=== PATIENT | female | born 1935 | race Caucasian/White ===

== ENCOUNTER 2018-06-24 03:19 | Inpatient (IN) ==
[2018-06-24] MEDS ORDERED: *HR* FentaNYL (PF) 100 MCG/2 ML VIAL IVP ONE (04:31)
--- NOTE | 2018-06-24 04:45 | Emergency Department Note ---
Disposition Clinical Impression: Hypoxia Community acquired pneumonia Qualifiers: Laterality: left Lung location: lower lobe of lung Qualified Code(s): J18.1 - Lobar pneumonia, unspecified organism Abdominal pain Qualifiers: Abdominal location: unspecified location Qualified Code(s): R10.9 - Unspecified abdominal pain Disposition: Admitted As Inpatient Condition: Good Referrals: Beverly Almanza MD [Primary Care Provider] - Forms: ED Satisfaction Letter, Work/School Release Time of Disposition: 06:13 Abdominal Pain HPI - General Chief Complaint: ED Abdominal Pain Stated Complaint: Chest Pain Abd Pain Time Seen by Provider: 06/24/18 03:23 Source: patient, family (Daughter), EMS Mode of arrival: EMS Limitations: no limitations Nursing Notes Reviewed: Yes Vital Signs Reviewed: Yes - History of Present Illness HPI Narrative: 82-year-old female history of hypertension, diabetes, hyperlipidemia presents to the emergency department with chest pain and abdominal pain. She reports around 1999 while watching TV she experienced sharp pain in the left upper quadrant that radiates across the abdomen under the ribs and up the chest. She reports a similar history in the past but not as severe. She does not recall the etiology of it at this time. She says she sees her primary care provider for the similar symptoms states this feels different. Denies any nausea or vomiting. Reports some shortness of breath. She is currently requiring 2 liter oxygen to keep her saturation above 95%. She does not wear home oxygen. Denies any diarrhea. She reports constipation but she had a bowel movement earlier today. History of ventral hernia and hiatal hernia repair performed by Dr. Schmid. No history of cardiac ischemic disease. Currently is not expressing any chest pain. Mostly her pain is located in the left upper quadrant. She does believe it is due to gastric ulcers. She denies any hematemesis, black tarry stool or bloody stool. She does not take any blood thinners. States she is currently being treated for bladder infection with Macrobid. She does have known aortic aneurysm and recently was evaluated 3 months ago states no change. Pt Subjective Complaint: abdominal pain Onset (ago): hour(s) Consistency: intermittent Location: LUQ Pain Scale: 7 Radiation: epigastric, chest - Related Data Allergies Allergy/AdvReac Type Severity Reaction Status Date / Time codeine AdvReac Nausea Verified 06/24/18 04:36 Penicillins AdvReac Rash Verified 06/24/18 04:36 Sulfa (Sulfonamide AdvReac Rash Verified 06/24/18 04:36 Antibiotics) All systems ED: reviewed and negative except as stated. Review of Systems: As Per HPI Constitutional: Denies: fever, chills ENT ED: Denies: congestion Cardiovascular: Reports: chest pain Respiratory: Reports: dyspnea. Denies: cough, hemoptysis Gastrointestinal: Reports: abdominal pain, constipation. Denies: nausea, vomiting, diarrhea, hematemesis, melena, hematochezia Genitourinary: Reports: dysuria Musculoskeletal: Denies: back pain, neck pain Integumentary: Denies: rash, abrasion Neurological: Denies: headache Endocrine: Denies: fatigue Abdominal Pain PMH - Past Medical History Medical history: Reports: aortic aneurysm, hypertension, renal disease, thyroid disease, other Female Surgical History: Reports: appendectomy, herniorrhaphy, hysterectomy, other Psychiatric history: Reports: no psych history - Social History Smoking status: Never smoker Alcohol use: Reports: none Drug use: Reports: none Physical Exam - General Limitations: no limitations General appearance: alert, in no apparent distress - Head Head exam: atraumatic, normocephalic, normal inspection - Eye Eye exam: Present: normal appearance, PERRL, EOMI - ENT ENT exam: normal exam, normal oropharynx, mucous membranes moist - Neck Neck exam: Present: normal inspection, full ROM, trachea midline - Chest Chest inspection: Present: normal inspection, symmetric chest wall rise - Respiratory Respiratory exam: Present: normal lung sounds bilaterally. Absent: respiratory distress, wheezes - Cardiovascular Cardiovascular exam: Present: regular rate, normal rhythm, normal heart sounds. Absent: systolic murmur, diastolic murmur - Expanded Cardiovascular Exam Peripheral pulses: 2+: radial (R), radial (L) - Abdominal Exam Abdominal exam: Present: soft, normal bowel sounds. Absent: Non-Tender, distention, guarding, rebound, rigidity, mass, hernia Abdominal tenderness: Present: LUQ, diffuse - Extremities Exam Extremities exam: Present: normal inspection, full ROM, normal capillary refill. Absent: tenderness, pedal edema - Neurological Exam Neurological exam: Present: alert, oriented X3 - Psychiatric Psychiatric exam: Present: normal affect, normal mood - Skin Skin exam: Present: warm, dry, intact, normal color. Absent: rash, cyanosis, diaphoresis Course Course Narrative: Patient presents with a day complaints of left upper quadrant pain with radiation along lower ribs and into the chest. She denies any shortness of breath however it was noted that she was hypoxic without oxygen. She was placed on 4 L nasal cannula by EMS and bumped down to 2 L maintaining 9496%. She does not wear oxygen at home. She denies any recent illness. Her pain is mostly in the left upper abdomen. At this time chest pain workup initiated including the CT scan. - Reevaluation(s) Reevaluation #1: Patient drop-down 88% on 2 occasions when we attempted to titrate her off oxygen supplementation. Her chest x-ray shows concern for possible left lower lobe pneumonia. Review for lab shows a leukocytosis of 13. Her CT scan did not reveal any acute intra-abdominal abnormality however there were opacities seen I basilar left greater than the right. Clinically she has community acquired pneumonia given her hypoxia. At this time we will plan to admit her for inpatient treatment of her community acquired pneumonia given her hypoxia and other comorbidities. Patients in agreement with this plan. Impression is community acquired pneumonia and hypoxia with abdominal pain. - Consultations Consultation #1: Spoke with on-call hospitalist bishop Sinha to admit for community acquired pneumonia and hypoxia with abdominal pain. No further orders at this time Time: 06:27 Vital Signs Temperature 98.7 F 06/24/18 03:23 Pulse Rate 70 06/24/18 03:23 Respiratory Rate 16 06/24/18 03:23 Blood Pressure 149/66 06/24/18 03:23 O2 Sat by Pulse Oximetry 96 06/24/18 03:23 Temperature 98.7 F 06/24/18 03:23 Pulse Rate 71 06/24/18 04:35 Respiratory Rate 17 06/24/18 04:35 Blood Pressure 132/118 06/24/18 04:35 O2 Sat by Pulse Oximetry 96 06/24/18 04:35 Oxygen Delivery Oxygen Delivery Nasal Cannula Abdominal Pain - MDM Narrative Medical decision making narrative: Patient was discussed with my attending physician who agrees with ED management and final disposition. They independently evaluated the patient. Please refer to their attestation to this encounter for additional information. This note was generated by [email or web address] voice recognition software and as a result grammatical or spelling errors may occur using this program. - Medical Records Medical records reviewed: Yes I reviewed the patient's medical records. - Lab Data Lab results reviewed: Yes I reviewed the patient's lab results. Result diagrams: 06/24/18 04:44 06/24/18 04:44 Lab Results 06/24/18 06/24/18 Range/Units 04:44 04:44 WBC 13.2 H (4.3-11.1) K/mcL RBC 3.86 (3.82-4.97) M/mcL Hgb 11.7 (11.5-15.4) g/dL Hct 37.2 (35.3-44.9) % MCV 96.4 (83.0-100.0) fL MCH 30.3 (28.0-33.3) pg MCHC 31.5 L (31.6-35.5) g/dL RDW 12.3 (11.5-14.5) % Plt Count 233 (140-400) K/mcL MPV 10.9 (9.4-12.4) fL Immature Gran % 0.2 (0-4) % Seg Neutrophils % 83.3 % Lymphocytes % 7.9 % Monocytes % 5.5 % Eosinophils % 2.6 % Basophils % 0.5 % Neutrophils # 11.0 H (1.6-8.9) K/mcL Lymphocytes # 1.1 (0.6-4.6) K/mcL Monocytes # 0.7 (0.0-1.3) K/mcL Eosinophils # 0.4 (0.0-0.6) K/mcL Basophils # 0.1 (0.0-0.2) K/mcL Sodium 140 (136-145) mEq/L Potassium 4.3 (3.5-5.1) mEq/L Chloride 105 (98-107) mEq/L Carbon Dioxide 26 (23-29) mEq/L BUN 17 (8-23) mg/dL Creatinine 0.82 (0.60-1.20) mg/dL Est GFR ( Amer) > 60 (> 60) Est GFR (Non-Af Amer) > 60 (> 60) BUN/Creatinine Ratio 21 (6-26) Glucose 245 H (70-105) mg/dL Calculated Osmolality 300 (280-300) Calcium 8.6 (8.6-10.3) mg/dL Troponin I < 0.03 (< 0.04) ng/mL - Radiology Data Radiology results reviewed: Yes I reviewed the patient's radiology results. Chest X-Ray 06/24/18 03:44 IMPRESSION: Left lower lung consolidation and pleural effusion presumably reflecting pneumonia. Calcific atherosclerotic disease aorta. D/ / Candido Lloyd / Candido Lloyd Interpreting Provider: Candido Lloyd Abdomen/Pelvis CT 06/24/18 03:50 IMPRESSION: No CT evidence of acute intra-abdominal process. Bilateral lower lobe airspace opacities, left greater than right, concerning for pneumonia. Trace left pleural effusion. Colonic diverticulosis. Multiple bladder diverticula. Diffuse osteopenia. D/ / Rufino Alberto / Rufino Alberto Interpreting Provider: Rufino Alberto - EKG Data EKG attestation: Yes I reviewed and interpreted this EKG. EKG results narrative: EKG performed 327 normal sinus rhythm 70 beats per minute, normal axis, right bundle branch block QRS 122, no ST elevation or depression. Compared to prior EKG performed 04/12/2015 which shows similar consistent findings of right bundle branch block. No acute ischemic changes.
[2018-06-24 04:58] LABS: Basophils # 0.1 K/mcL (0.0-0.2); Basophils % 0.5 %; Eosinophils # 0.4 K/mcL (0.0-0.6); Eosinophils % 2.6 %; Hematocrit 37.2 % (35.3-44.9); Hemoglobin 11.7 g/dL (11.5-15.4); Immature Granulocytes % 0.2 % (0-4); Lymphocytes # 1.1 K/mcL (0.6-4.6); Lymphocytes % 7.9 %; Mean Corpuscular HGB Conc 31.5 g/dL (31.6-35.5); Mean Corpuscular Hemoglobin 30.3 pg (28.0-33.3); Mean Corpuscular Volume 96.4 fL (83.0-100.0); Mean Platelet Volume 10.9 fL (9.4-12.4); Monocytes # 0.7 K/mcL (0.0-1.3); Monocytes % 5.5 %; Platelet Count 233 K/mcL (140-400); Red Blood Count 3.86 M/mcL (3.82-4.97); Red Cell Distribution Width 12.3 % (11.5-14.5); Segmented Neutrophils % 83.3 %
[2018-06-24 05:18] LABS: BUN/Creatinine Ratio 21 (6-26); Blood Urea Nitrogen 17 mg/dL (8-23); Calcium 8.6 mg/dL (8.6-10.3); Carbon Dioxide 26 mEq/L (23-29); Chloride 105 mEq/L (98-107); Glucose 245 mg/dL (70-105); Osmolality,Calculated 300 (280-300); Potassium 4.3 mEq/L (3.5-5.1); Sodium 140 mEq/L (136-145); eGFR For Non-African Americans > 60 (> 60)
[2018-06-24 05:19] LABS: Troponin I < 0.03 ng/mL (< 0.04)
[2018-06-24] MEDS ORDERED: cefTRIAXone 1,000 MG in Water for inj. (sterile) 20 ML 10 ML IVP ONE (06:04)
[2018-06-24] MEDS ORDERED: Azithromycin 500 MG in D5% in Water 250 ML IVPB ONE (06:04)
--- NOTE | 2018-06-24 06:43 | Emergency Department Note ---
Disposition Clinical Impression: Hypoxia Community acquired pneumonia Qualifiers: Laterality: left Lung location: lower lobe of lung Qualified Code(s): J18.1 - Lobar pneumonia, unspecified organism Abdominal pain Qualifiers: Abdominal location: unspecified location Qualified Code(s): R10.9 - Unspecified abdominal pain Disposition: Admitted As Inpatient Condition: Good General Adult HPI - General Chief complaint: ED Abdominal Pain Stated complaint: Chest Pain Abd Pain Time Seen by Provider: 06/24/18 03:23 Source: patient, family (Daughter), EMS Mode of arrival: EMS Limitations: no limitations Nursing Notes Reviewed: Yes Vital Signs Reviewed: Yes - History of Present Illness Pain Scale: 5 - Related Data Allergies Allergy/AdvReac Type Severity Reaction Status Date / Time codeine AdvReac Nausea Verified 06/24/18 04:36 Penicillins AdvReac Rash Verified 06/24/18 04:36 Sulfa (Sulfonamide AdvReac Rash Verified 06/24/18 04:36 Antibiotics) Constitutional: Denies: fever, chills ENT ED: Denies: congestion Cardiovascular: Reports: chest pain Respiratory: Reports: dyspnea. Denies: cough, hemoptysis Gastrointestinal: Reports: abdominal pain, constipation. Denies: nausea, vomiting, diarrhea, hematemesis, melena, hematochezia Genitourinary: Reports: dysuria Musculoskeletal: Denies: back pain, neck pain Integumentary: Denies: rash, abrasion Neurological: Denies: headache Endocrine: Denies: fatigue Past Medical History - Past Medical History Medical history: Reports: aortic aneurysm, hypertension, renal disease, thyroid disease, other Psychiatric history: Reports: no psych history - Social History Smoking Status: Never smoker Smokeless Tobacco Status: Yes Alcohol use: Reports: none Drug use: Reports: none Physical Exam - General Limitations: no limitations General appearance: alert, in no apparent distress Course Vital Signs Temperature 98.7 F 06/24/18 03:23 Pulse Rate 70 06/24/18 03:23 Respiratory Rate 16 06/24/18 03:23 Blood Pressure 149/66 06/24/18 03:23 O2 Sat by Pulse Oximetry 96 06/24/18 03:23 Temperature 98.7 F 06/24/18 03:23 Pulse Rate 70 06/24/18 06:31 Respiratory Rate 20 06/24/18 06:31 Blood Pressure 149/68 06/24/18 06:31 O2 Sat by Pulse Oximetry 95 06/24/18 06:31 Oxygen Delivery Oxygen Delivery Nasal Cannula Medical Decision Making - Medical Records Medical records reviewed: Yes I reviewed the patient's medical records. - Lab Data Lab results reviewed: Yes I reviewed the patient's lab results. Result diagrams: 06/24/18 04:44 06/24/18 04:44 Lab Results 06/24/18 06/24/18 Range/Units 04:44 04:44 WBC 13.2 H (4.3-11.1) K/mcL RBC 3.86 (3.82-4.97) M/mcL Hgb 11.7 (11.5-15.4) g/dL Hct 37.2 (35.3-44.9) % MCV 96.4 (83.0-100.0) fL MCH 30.3 (28.0-33.3) pg MCHC 31.5 L (31.6-35.5) g/dL RDW 12.3 (11.5-14.5) % Plt Count 233 (140-400) K/mcL MPV 10.9 (9.4-12.4) fL Immature Gran % 0.2 (0-4) % Seg Neutrophils % 83.3 % Lymphocytes % 7.9 % Monocytes % 5.5 % Eosinophils % 2.6 % Basophils % 0.5 % Neutrophils # 11.0 H (1.6-8.9) K/mcL Lymphocytes # 1.1 (0.6-4.6) K/mcL Monocytes # 0.7 (0.0-1.3) K/mcL Eosinophils # 0.4 (0.0-0.6) K/mcL Basophils # 0.1 (0.0-0.2) K/mcL Sodium 140 (136-145) mEq/L Potassium 4.3 (3.5-5.1) mEq/L Chloride 105 (98-107) mEq/L Carbon Dioxide 26 (23-29) mEq/L BUN 17 (8-23) mg/dL Creatinine 0.82 (0.60-1.20) mg/dL Est GFR ( Amer) > 60 (> 60) Est GFR (Non-Af Amer) > 60 (> 60) BUN/Creatinine Ratio 21 (6-26) Glucose 245 H (70-105) mg/dL Calculated Osmolality 300 (280-300) Calcium 8.6 (8.6-10.3) mg/dL Troponin I < 0.03 (< 0.04) ng/mL - Radiology Data Radiology results reviewed: Yes I reviewed the patient's radiology results. Chest X-Ray 06/24/18 03:44 IMPRESSION: Left lower lung consolidation and pleural effusion presumably reflecting pneumonia. Calcific atherosclerotic disease aorta. D/ / Candido Lloyd / Candido Lloyd Interpreting Provider: Candido Lloyd Abdomen/Pelvis CT 06/24/18 03:50 IMPRESSION: No CT evidence of acute intra-abdominal process. Bilateral lower lobe airspace opacities, left greater than right, concerning for pneumonia. Trace left pleural effusion. Colonic diverticulosis. Multiple bladder diverticula. Diffuse osteopenia. D/ / Rufino Alberto / Rufino Alberto Interpreting Provider: Rufino Alberto - EKG Data EKG #1 EKG attestation: Yes I reviewed and interpreted this EKG. EKG results narrative: EKG shows a normal sinus rhythm with ventricular rate of 70. Right bundle branch block. No ST segment elevation or depression. No arrhythmia or ectopy. No significant change from prior EKG dated 04/12/2015. Critical Care Time Critical Care Time: Yes Total Critical Care Time: 35 Attestation: Critical care performed: Time is exclusive of separately billable procedures. Time includes: direct patient care, patient reassessment, coordination of patient care, interpretation of data (laboratory data, radiology data, and respiratory data), review of patient's medical records, medical consultation and documentation of patient care. Procedures included in critical care time: Procedures excluded from critical care time: Attestation Statement - Attestation Attestation: David Richardson MD, personally evaluated this patient and discussed their management with the resident physician. I reviewed the resident's note and agree with the documented findings, medical decision making, and plan of care. 82-year-old female presents to the emergency department with a complaint of left upper quadrant abdominal pain that started one day prior to arrival. The pain seemed to spread across to the right upper abdomen and throughout the entire abdomen. She also admits to some shortness of breath. No increased cough. Some chills but no definite fever. No chest pain. On examination patient is a well-developed well-nourished well-appearing elderly female in no acute distress. She is alert and oriented 3. There is no cyanosis or diaphoresis. Breath sounds are equal bilaterally with a few bibasilar rales, worse on the left. No wheezes noted. Heart regular rate and rhythm. Abdomen is soft with normal bowel sounds. Mild to moderate diffuse tenderness on direct palpation. No guarding or rebound tenderness. Labs reviewed. Chest x-ray shows a left pleural effusion and left basilar infiltrate. CT the abdomen and pelvis showed no acute intra-abdominal abnormality. It did show bibasilar airspace disease worse on the left. IV antibiotics initiated. The hospitalist, Dr. Casillas, was consulted and accepted admission of the patient.
[2018-06-24] MEDS ORDERED: Acetaminophen 325 MG TABLET PO PRN (08:10)
[2018-06-24] MEDS ORDERED: Naloxone 0.4 MG/ML INJ IVP PRN (08:10)
[2018-06-24] MEDS ORDERED: D5% in Water 1,000 ML IVC PRN (08:14)
[2018-06-24] MEDS ORDERED: *HR* Dextrose 50 % in Water (Syg) 50 ML SYRINGE IVP PRN (08:14)
[2018-06-24] MEDS ORDERED: Dextrose Gel 15 GM/37.5 ML TUBE PO PRN ×2 (08:14)
--- NOTE | 2018-06-24 08:25 | Internal Med History&Physical ---
Date of Encounter: 06/24/18 Time of Encounter: 07:30 Internal Medicine - H&P: HPI Chief complaint: Abdominal pain Admitted From: Home Plans for Post Hospital Care: Home History of present illness: Ms. Montelongo is a 82 year old female present to ER for lower chest and upper abdominal pain since yesterday evening. Past medical history is significant for diabetes, hypothyroidism, abdominal aortic aneurysm, history of surgery for hiatal hernia. Patient said she started to have lower chest pain and upper abdominal pain since yesterday evening around 8 PM. Pain is constant and progressively getting worse. With nausea but no vomiting. Pain is not related to eating. Patient denies cough. Patient has mild shortness of breath. Patient denies fever, diarrhea. Patient has bowel movement yesterday morning, which is normal. Patient can pass gas. Patient was recently diagnosed as UTI and was treated with MicroBid by her urology. Patient still have mild dysuria. In the emergency room, EKG unremarkable, first troponin negative. Patient has mild leukocytosis. Chest x-ray shows bilateral lower lobe pneumonia, left> right. Abdomen CT shows no significant acute intra-abdominal changes. Patient was admitted for further management. I have discussed with patient regarding CODE STATUS. Patient is AAO 3, clearly told me she does not want CPR but accept intubation, DNR CCA placed, witnessed up by patient's daughter and granddaughter. Past Med Surg Social Fam HX - Past Medical History Medical history: aortic aneurysm, hypertension, renal disease, thyroid disease, other Additional medical history: throid Psychiatric history: no psych history - Past Surgical History Additional surgical history: tumor spine, abd surgery - Social History Smoking Status: Never smoker Smokeless Tobacco Status: Yes Alcohol use: none Drug use: none - Family History Mother History Unknown: Yes Internal Medicine - H&P: Meds Allergy/AdvReac Type Severity Reaction Status Date / Time codeine AdvReac Nausea Verified 06/24/18 04:36 Penicillins AdvReac Rash Verified 06/24/18 04:36 Sulfa (Sulfonamide AdvReac Rash Verified 06/24/18 04:36 Antibiotics) All Systems PM: A 10-system review of systems was performed and is negative for pertinent findings except as documented above in the HPI. - Constitutional Vitals: Temp Pulse Resp BP Pulse Ox 98.7 F 70 20 149/68 95 06/24/18 03:23 06/24/18 06:31 06/24/18 06:31 06/24/18 06:31 06/24/18 06:31 Exam: Pt is AAO x 3, in NAD HEENT: NC/AT, PERRL Neck: Supple, no JVD, no LAD Lungs: CTA b/l, patient has chest wall tenderness on anterior chest wall Heart: S1S2, RRR Abd: Soft, mild tenderness in 4Q, BS present Ext: ROM wnl, no pedal edema Neuro: No focal deficit Internal Med - H&P Results - Labs CBC & Chem 7: 06/24/18 04:44 06/24/18 04:44 Labs: Short CBC 06/24/18 Range/Units 04:44 WBC 13.2 H (4.3-11.1) K/mcL Hgb 11.7 (11.5-15.4) g/dL Hct 37.2 (35.3-44.9) % Plt Count 233 (140-400) K/mcL Neutrophils # 11.0 H (1.6-8.9) K/mcL BMP 06/24/18 04:44 Sodium 140 Potassium 4.3 Chloride 105 Carbon Dioxide 26 BUN 17 Creatinine 0.82 Glucose 245 H Calcium 8.6 Cardiac Enzymes 06/24/18 Range/Units 04:44 Troponin I < 0.03 (< 0.04) ng/mL - Impressions ITS Impressions Chest X-Ray 06/24/18 03:44 IMPRESSION: Left lower lung consolidation and pleural effusion presumably reflecting pneumonia. Calcific atherosclerotic disease aorta. D/ / Candido Lloyd / Candido Lloyd Interpreting Provider: Candido Lloyd Abdomen/Pelvis CT 06/24/18 03:50 IMPRESSION: No CT evidence of acute intra-abdominal process. Bilateral lower lobe airspace opacities, left greater than right, concerning for pneumonia. Trace left pleural effusion. Colonic diverticulosis. Multiple bladder diverticula. Diffuse osteopenia. D/ / Rufino Alberto / Rufino Alberto Interpreting Provider: Rufino Alberto - Assessment and Plan (1) Diabetes Current Visit: Yes Status: Acute Assessment and plan: Patient takes metformin at home. Place patient on insulin sliding scale coverage. Qualifiers: Diabetes mellitus type: type 2 Diabetes mellitus termite helper insulin use: without termite helper use Diabetes mellitus complication status: without complication Qualified Code(s): E11.9 - Type 2 diabetes mellitus without complications (2) Hypothyroidism Current Visit: Yes Status: Acute Assessment and plan: Continue home medications Qualifiers: Hypothyroidism type: acquired Qualified Code(s): E03.9 - Hypothyroidism, unspecified (3) Abdominal aortic aneurysm Current Visit: Yes Status: Acute Assessment and plan: Stable. Continue outpatient follow-up Qualifiers: Presence of rupture: without rupture Qualified Code(s): I71.4 - Abdominal aortic aneurysm, without rupture (4) DVT prophylaxis Current Visit: Yes Status: Acute Assessment and plan: Heparin subcutaneously (5) Abdominal pain Current Visit: Yes Status: Acute Assessment and plan: Patient complaint with abdominal pain. CT abdominal unremarkable. Patient has mild nausea, no vomiting or diarrhea. - Continue supportive treatment and closely monitor patient - Check lipase and liver function Qualifiers: Abdominal location: generalized Qualified Code(s): R10.84 - Generalized abdominal pain (6) Community acquired pneumonia Current Visit: Yes Status: Acute Assessment and plan: CT abdominal and chest x-ray shows bilateral lower lobe pneumonia. Clinical presentation is atypical. - Continue azithromycin and Rocephin for pneumonia - Check a respiratory viral panel, Legionella and Strep Pneumo antigens - Continue oxygen supportive treatment Qualifiers: Laterality: left Lung location: lower lobe of lung Qualified Code(s): J18.1 - Lobar pneumonia, unspecified organism (7) Hypoxia Current Visit: Yes Status: Acute Assessment and plan: Mild desaturation to 88% in RA, x-ray shows pneumonia. We will continue treat underlying pneumonia. (8) Chest pain Current Visit: Yes Status: Acute Assessment and plan: Patient denies history of CAD. Risk factor for CAD include diabetes and hyperlipidemia. EKG unremarkable. Chest pain is atypical and inducible. - Place patient on continuous cardiac monitoring - Track 3 sets of troponin Qualifiers: Chest pain type: intercostal pain Qualified Code(s): R07.82 - Intercostal pain - Time Spent With Patient Total time spent is greater than 50% in coordination of care (as documented) at patient's floor/unit and/or counseling patient: 40 minutes Greater than 35 minutes
[2018-06-24 08:35] LABS: Alanine Aminotransferase 12 Units/L (7-52); Albumin 3.6 g/dL (3.5-5.7); Albumin/Globulin Ratio 1.4 (1.1-2.2); Alkaline Phosphatase 74 Units/L (34-104); Aspartate Amino Transferase 12 Units/L (13-39); Bilirubin,Direct 0.1 mg/dL (0.0-0.2); Bilirubin,Indirect 0.4 mg/dL (0.0-1.2); Bilirubin,Total 0.5 mg/dL (0.3-1.0); Globulin 2.6 g/dL (2.4-3.5); Lipase 20 Units/L (11-82); Total Protein 6.2 g/dL (6.4-8.9)
[2018-06-24 11:46] LABS: Adenovirus Not Detected (Not Detect); Bordetella Pertussis Not Detected (Not Detect); Chlamydophila pneumoniae Not Detected (Not Detect); Coronavirus 229E Not Detected (Not Detect); Coronavirus HKU1 Not Detected (Not Detect); Coronavirus NL63 Not Detected (Not Detect); Coronavirus OC43 Not Detected (Not Detect); Human Metapneumovirus Not Detected (Not Detect); Human Rhinovirus/Enterovirus Not Detected (Not Detect); Influenza A Subtype 2009 H1 Not Detected (Not Detect); Influenza A Untypeable Not Detected (Not Detect); Influenza B Not Detected (Not Detect); Mycoplasma pneumoniae Not Detected (Not Detect); Parainfluenza Virus 1 Not Detected (Not Detect); Parainfluenza Virus 2 Not Detected (Not Detect); Parainfluenza Virus 3 Not Detected (Not Detect); Parainfluenza Virus 4 Not Detected (Not Detect); Respiratory Syncytial Virus Not Detected (Not Detect)
[2018-06-24] MEDS: Insulin LISPRO 300 UNITS/3 ML VIAL SQ SCH ×3 (12:56→22:06)
[2018-06-24] MEDS ORDERED: Lactulose Oral Soln 20 GM/30 ML UDC PO PRN (20:47)
[2018-06-24] MEDS ORDERED: traMADol 50 MG TABLET PO ONE (20:57)
[2018-06-24] MEDS: Gabapentin 100 MG CAPSULE PO SCH (22:01)
[2018-06-25 04:17] LABS: Basophils % 0.7 %; Eosinophils # 0.4 K/mcL (0.0-0.6); Eosinophils % 6.8 %; Hematocrit 35.5 % (35.3-44.9); Hemoglobin 11.4 g/dL (11.5-15.4); Immature Granulocytes % 0.2 % (0-4); Lymphocytes # 1.7 K/mcL (0.6-4.6); Lymphocytes % 29.3 %; Mean Corpuscular HGB Conc 32.1 g/dL (31.6-35.5); Mean Corpuscular Hemoglobin 30.6 pg (28.0-33.3); Mean Corpuscular Volume 95.4 fL (83.0-100.0); Mean Platelet Volume 11.3 fL (9.4-12.4); Monocytes # 0.6 K/mcL (0.0-1.3); Monocytes % 10.5 %; Neutrophils # 3.1 K/mcL (1.6-8.9); Platelet Count 240 K/mcL (140-400); Red Blood Count 3.72 M/mcL (3.82-4.97); Red Cell Distribution Width 12.3 % (11.5-14.5); Segmented Neutrophils % 52.5 %
[2018-06-25 04:37] LABS: BUN/Creatinine Ratio 22 (6-26); Blood Urea Nitrogen 18 mg/dL (8-23); Calcium 8.9 mg/dL (8.6-10.3); Carbon Dioxide 28 mEq/L (23-29); Chloride 104 mEq/L (98-107); Glucose 150 mg/dL (70-105); Magnesium 1.5 mg/dL (1.6-2.6); Osmolality,Calculated 295 (280-300); Potassium 4.4 mEq/L (3.5-5.1); Sodium 140 mEq/L (136-145); eGFR For Non-African Americans > 60 (> 60)
[2018-06-25] MEDS ORDERED: cefTRIAXone 1,000 MG in Water for inj. (sterile) 20 ML 10 ML IVP SCH (06:00)
[2018-06-25] MEDS: cefTRIAXone 1,000 MG in Water for inj. (sterile) 20 ML 10 ML IVP SCH (06:15)
[2018-06-25] MEDS: Azithromycin 500 MG in D5% in Water 250 ML IVPB SCH (06:34)
--- NOTE | 2018-06-25 08:36 | Internal Med Progress Note ---
Hospitalist Progress Note - Encounter Date of Encounter: 06/25/18 Time of Encounter: 08:35 - Subjective Interval History: Patient seen and examined at bedside currently states she feels much better however she has been experiencing some pleuritic pain on inspiration - Exam Vitals: Temp Pulse Resp BP Pulse Ox 98.6 F 67 16 135/73 97 06/25/18 07:46 06/25/18 07:46 06/25/18 07:46 06/25/18 07:46 06/25/18 07:46 Exam: Pt is AAO x 3, in NAD HEENT: NC/AT, PERRL Neck: Supple, no JVD, no LAD Lungs: CTA b/l, patient has chest wall tenderness on anterior chest wall-crac kles in the base of the right lung Heart: S1S2, RRR Abd: Soft, mild tenderness in 4Q, BS present Ext: ROM wnl, no pedal edema Neuro: No focal deficit - Assessment and Plan (1) Community acquired pneumonia Current Visit: Yes Status: Acute Assessment and Plan: CT abdominal and chest x-ray shows bilateral lower lobe pneumonia. Clinical presentation is atypical. - Continue azithromycin and Rocephin for pneumonia - respiratory viral panel negative, Legionella and Strep Pneumo antigens neg ative - Continue oxygen supportive treatment (2) Hypoxia Current Visit: Yes Status: Acute Assessment and Plan: Mild desaturation to 88% in RA, x-ray shows pneumonia. We will continue treat underlying pneumonia. Currently 96% on room air we will have patient do 6 minute walk (3) Abdominal pain Current Visit: Yes Status: Acute Assessment and Plan: Patient complaint with abdominal pain. CT abdominal unremarkable. Patient has mild nausea, no vomiting or diarrhea. - Continue supportive treatment and closely monitor patient - Check lipase and liver function-within normal limits -Did have some urinary symptoms prior to presentation-abdominal pain and running on urination- however she states that she feels much better (4) Diabetes Current Visit: Yes Status: Acute Assessment and Plan: Patient takes metformin at home. Place patient on insulin sliding scale coverage. (5) Hypothyroidism Current Visit: Yes Status: Acute Assessment and Plan: Continue home medications (6) Abdominal aortic aneurysm Current Visit: Yes Status: Acute Assessment and Plan: Stable. Continue outpatient follow-up (7) DVT prophylaxis Current Visit: Yes Status: Acute Assessment and Plan: Heparin subcutaneously (8) Chest pain Current Visit: Yes Status: Acute Assessment and Plan: Patient denies history of CAD. Risk factor for CAD include diabetes and hyperlipidemia. EKG unremarkable. Chest pain is atypical and inducible. - Place patient on continuous cardiac monitoring - troponin negative 3 -Suspect pleuritic pain states pain is worse with inspiration - Time Spent with Patient Total time spent is greater than 50% in coordination of care (as documented) at patient's floor/unit and/or counseling patient: Internal Medicine: Result - Labs CBC & Chem 7: 06/25/18 02:45 06/25/18 02:45 Labs: Short CBC 06/25/18 Range/Units 02:45 WBC 5.9 D (4.3-11.1) K/mcL Hgb 11.4 L (11.5-15.4) g/dL Hct 35.5 (35.3-44.9) % Plt Count 240 (140-400) K/mcL Neutrophils # 3.1 (1.6-8.9) K/mcL BMP 06/25/18 02:45 Sodium 140 Potassium 4.4 Chloride 104 Carbon Dioxide 28 BUN 18 Creatinine 0.82 Glucose 150 H Calcium 8.9 Cardiac Enzymes 06/24/18 06/24/18 Range/Units 09:47 15:58 Troponin I < 0.03 < 0.03 (< 0.04) ng/mL Liver Function 06/24/18 Range/Units 04:44 Total Bilirubin 0.5 (0.3-1.0) mg/dL Direct Bilirubin 0.1 (0.0-0.2) mg/dL AST 12 L (13-39) Units/L ALT 12 (7-52) Units/L Alkaline Phosphatase 74 (34-104) Units/L Albumin 3.6 (3.5-5.7) g/dL Consult Discharge Plan - Plan Referrals: Beverly Almanza MD [Primary Care Provider] - 07/04/18 8:00 am (1) Community acquired pneumonia Qualifiers: Laterality: left Lung location: lower lobe of lung Qualified Code(s): J18.1 - Lobar pneumonia, unspecified organism (3) Abdominal pain Qualifiers: Abdominal location: generalized Qualified Code(s): R10.84 - Generalized abdominal pain (4) Diabetes Qualifiers: Diabetes mellitus type: type 2 Diabetes mellitus jail insulin use: without buttermaker continuous churn use Diabetes mellitus complication status: without complication Qualified Code(s): E11.9 - Type 2 diabetes mellitus without complications (5) Hypothyroidism Qualifiers: Hypothyroidism type: acquired Qualified Code(s): E03.9 - Hypothyroidism, unspecified (6) Abdominal aortic aneurysm Qualifiers: Presence of rupture: without rupture Qualified Code(s): I71.4 - Abdominal aortic aneurysm, without rupture (8) Chest pain Qualifiers: Chest pain type: intercostal pain Qualified Code(s): R07.82 - Intercostal pain
[2018-06-25] MEDS ORDERED: Famotidine 20 MG TABLET PO PRN (09:00)
[2018-06-25] MEDS: Insulin LISPRO 300 UNITS/3 ML VIAL SQ SCH ×4 (09:44→20:51)
--- NOTE | 2018-06-25 10:08 | Electrocardiograph Report ---
[facility] [employer] Test Date: 2018-06-24 Pat Name: Arian Monetlongo Department: EXAM18 Room: 3B14 Gender: F Branch Administrator: : [id number] Requested By: Mushtaq Shah Order Number: [id number] Reading MD: Devin Lucio Measurements Intervals [place] Rate: 70 P: 57 TN: 162 QRS: 78 QRSD: 122 T: 59 QT: 419 QTc: 453 Interpretive Statements Sinus rhythm Right bundle branch block Electronically Signed On 06-25-2018 10:06:23 EDT by Devin Lucio
[2018-06-25] MEDS: Ondansetron 4 MG/2 ML VIAL IVP PRN ×2 (14:19→18:44)
[2018-06-25 17:26] LABS: Bilirubin,Urine Negative (Negative); Blood,Urine Negative (Negative); Clarity,Urine Clear (Clear); Color,Urine Yellow (Yellow); Glucose,Urine (UA) Normal (Normal); Ketones,Urine Negative (Negative); Leukocyte Esterase,Urine Small (Negative); Nitrite,Urine Negative (Negative); Protein,Urine Trace mg/dL (Neg-Trace); Specific Gravity,Urine 1.019 (1.010-1.025); Urobilinogen,Urine Normal (Normal)
[2018-06-25 17:29] LABS: Bacteria,Urine None Seen per hpf (None-Few); Hyaline Casts,Urine None Seen per lpf (None-Few); RBC,Urine 0-3 per hpf (0-3); Squamous Epithelial Cell,Urine Many per lpf (None-Few)
[2018-06-25] MEDS: Gabapentin 100 MG CAPSULE PO SCH (20:52)
[2018-06-26 04:57] LABS: Basophils # 0.1 K/mcL (0.0-0.2); Basophils % 0.8 %; Eosinophils # 0.3 K/mcL (0.0-0.6); Eosinophils % 4.2 %; Hematocrit 37.7 % (35.3-44.9); Hemoglobin 12.1 g/dL (11.5-15.4); Immature Granulocytes % 0.3 % (0-4); Lymphocytes # 1.8 K/mcL (0.6-4.6); Lymphocytes % 24.8 %; Mean Corpuscular HGB Conc 32.1 g/dL (31.6-35.5); Mean Corpuscular Hemoglobin 30.5 pg (28.0-33.3); Mean Platelet Volume 10.5 fL (9.4-12.4); Monocytes # 0.7 K/mcL (0.0-1.3); Monocytes % 9.4 %; Neutrophils # 4.3 K/mcL (1.6-8.9); Platelet Count 274 K/mcL (140-400); Red Blood Count 3.97 M/mcL (3.82-4.97); Red Cell Distribution Width 12.2 % (11.5-14.5); Segmented Neutrophils % 60.5 %
[2018-06-26 05:16] LABS: BUN/Creatinine Ratio 23 (6-26); Blood Urea Nitrogen 23 mg/dL (8-23); Calcium 9.3 mg/dL (8.6-10.3); Carbon Dioxide 29 mEq/L (23-29); Chloride 102 mEq/L (98-107); Glucose 179 mg/dL (70-105); Osmolality,Calculated 298 (280-300); Potassium 4.7 mEq/L (3.5-5.1); Sodium 140 mEq/L (136-145); eGFR For Non-African Americans 54 (> 60)
[2018-06-26] MEDS: Azithromycin 500 MG in D5% in Water 250 ML IVPB SCH (05:31)
[2018-06-26] MEDS: cefTRIAXone 1,000 MG in Water for inj. (sterile) 20 ML 10 ML IVP SCH (05:32)
[2018-06-26] MEDS: Psyllium 1 PACKET POWD.PACK PO SCH (08:43)
[2018-06-26] MEDS: Insulin LISPRO 300 UNITS/3 ML VIAL SQ SCH ×4 (08:43→20:43)
--- NOTE | 2018-06-26 10:09 | Internal Med Progress Note ---
Hospitalist Progress Note - Encounter Date of Encounter: 06/26/18 Time of Encounter: 10:07 - Subjective Interval History: Pt seen and examined in the room. She stated chest pain has resolved. She has no cough or sob currently. No abd pain, had a BM since yesterday. No fever, chills, or night sweats. - Exam Vitals: Temp Pulse Resp BP Pulse Ox 99.0 F 89 16 124/75 95 06/26/18 07:27 06/26/18 07:27 06/26/18 07:27 06/26/18 07:27 06/26/18 07:27 Exam: Pt is AAO x 3, in NAD HEENT: NC/AT, PERRL Neck: Supple, no JVD, no LAD Lungs: CTA b/l, patient has chest wall tenderness on anterior chest wall- crackles in the base of the right lung Heart: S1S2, RRR Abd: Soft, mild tenderness in 4Q, BS present Ext: ROM wnl, no pedal edema Neuro: No focal deficit - Assessment and Plan (1) Community acquired pneumonia Current Visit: Yes Status: Acute Assessment and Plan: CT abdominal and chest x-ray shows bilateral lower lobe pneumonia. Clinical presentation is atypical. - Continue azithromycin and Rocephin for pneumonia - respiratory viral panel negative, Legionella and Strep Pneumo antigens negative - Plan to switch to oral abx tomorrow. (2) Hypoxia Current Visit: Yes Status: Acute Assessment and Plan: Mild desaturation to 88% in RA, x-ray shows pneumonia. We will continue treat underlying pneumonia. Currently 96% on room air. 6 minute walk today. (3) Abdominal pain Current Visit: Yes Status: Resolved (4) Diabetes Current Visit: No Status: Chronic Assessment and Plan: Patient takes metformin at home. Place patient on insulin sliding scale coverage. (5) Hypothyroidism Current Visit: No Status: Chronic Assessment and Plan: Continue home medications (6) Abdominal aortic aneurysm Current Visit: No Status: Chronic Assessment and Plan: Stable. Continue outpatient follow-up (7) DVT prophylaxis Current Visit: Yes Status: Acute (8) Chest pain Current Visit: Yes Status: Resolved - Time Spent with Patient Total time spent is greater than 50% in coordination of care (as documented) at patient's floor/unit and/or counseling patient: Greater than 35 minutes Plan of Care Discussed with: patient Internal Medicine: Result - Labs CBC & Chem 7: 06/26/18 04:46 06/26/18 04:46 Labs: Short CBC 06/26/18 Range/Units 04:46 WBC 7.1 (4.3-11.1) K/mcL Hgb 12.1 (11.5-15.4) g/dL Hct 37.7 (35.3-44.9) % Plt Count 274 (140-400) K/mcL Neutrophils # 4.3 (1.6-8.9) K/mcL BMP 06/26/18 04:46 Sodium 140 Potassium 4.7 Chloride 102 Carbon Dioxide 29 BUN 23 Creatinine 0.98 Glucose 179 H Calcium 9.3 Urine 06/25/18 Range/Units 17:15 Urine Color Yellow (Yellow) Urine Clarity Clear (Clear) Urine pH 6.0 (5.0-8.0) pH Units Ur Specific [place] 1.019 (1.010-1.025) Urine Protein Trace (Neg-Trace) mg/dL Urine Glucose (UA) Normal (Normal) mg/dL Consult Discharge Plan - Plan Referrals: Beverly Almanza MD [Primary Care Provider] - 07/04/18 8:00 am (1) Community acquired pneumonia Qualifiers: Laterality: left Lung location: lower lobe of lung Qualified Code(s): J18.1 - Lobar pneumonia, unspecified organism (3) Abdominal pain Qualifiers: Abdominal location: generalized Qualified Code(s): R10.84 - Generalized abdominal pain (4) Diabetes Qualifiers: Diabetes mellitus type: type 2 Diabetes mellitus assisted insulin use: without assisted use Diabetes mellitus complication status: without complication Qualified Code(s): E11.9 - Type 2 diabetes mellitus without complications (5) Hypothyroidism Qualifiers: Hypothyroidism type: acquired Qualified Code(s): E03.9 - Hypothyroidism, unspecified (6) Abdominal aortic aneurysm Qualifiers: Presence of rupture: without rupture Qualified Code(s): I71.4 - Abdominal aortic aneurysm, without rupture (8) Chest pain Qualifiers: Chest pain type: intercostal pain Qualified Code(s): R07.82 - Intercostal pain
[2018-06-26] MEDS: Gabapentin 100 MG CAPSULE PO SCH (20:43)
[2018-06-27] MEDS: cefTRIAXone 1,000 MG in Water for inj. (sterile) 20 ML 10 ML IVP SCH (05:21)
[2018-06-27] MEDS: Azithromycin 500 MG in D5% in Water 250 ML IVPB SCH (05:27)
[2018-06-27 07:13] VITALS: BP 115/75
[2018-06-27] MEDS ORDERED: Propranolol LA (24 HR) 80 MG CAP.SA.24H PO SCH (09:00)
--- NOTE | 2018-06-27 09:16 | Discharge Summary ---
- NOTES TO OUTPATIENT PROVIDER Notes to Outpatient Provider: f/u with PCP within a week. Orders not resulted at time of discharge: Pending orders 06/24/18 08:05 Culture,Blood [BC] Stat Date of Encounter: 06/27/18 Time of Encounter: 09:13 - Discharge Diagnosis (1) Community acquired pneumonia Priority: Primary Status: Acute Qualifiers: Laterality: left Lung location: lower lobe of lung Qualified Code(s): J18.1 - Lobar pneumonia, unspecified organism (2) Hypoxia Priority: Primary Status: Acute (3) Abdominal pain Priority: Primary Status: Resolved Qualifiers: Abdominal location: generalized Qualified Code(s): R10.84 - Generalized abdominal pain (4) Diabetes Priority: Secondary Status: Chronic Qualifiers: Diabetes mellitus type: type 2 Diabetes mellitus alf insulin use: without truck terminal manager use Diabetes mellitus complication status: without complication Qualified Code(s): E11.9 - Type 2 diabetes mellitus without complications (5) Hypothyroidism Priority: Secondary Status: Chronic Qualifiers: Hypothyroidism type: acquired Qualified Code(s): E03.9 - Hypothyroidism, unspecified (6) Abdominal aortic aneurysm Priority: Secondary Status: Chronic Qualifiers: Presence of rupture: without rupture Qualified Code(s): I71.4 - Abdominal aortic aneurysm, without rupture (7) DVT prophylaxis Priority: Primary Status: Acute (8) Chest pain Priority: Primary Status: Resolved Qualifiers: Chest pain type: intercostal pain Qualified Code(s): R07.82 - Intercostal pain Hospital course: Ms. Montelongo is a 82 year old female present to ER for lower chest and upper abdominal pain since yesterday evening. Past medical history is significant for diabetes, hypothyroidism, abdominal aortic aneurysm, history of surgery for hiatal hernia. Patient said she started to have lower chest pain and upper abdominal pain since yesterday evening around 8 PM. Pain is constant and progressively getting worse. With nausea but no vomiting. Pain is not related to eating. Patient denies cough. Patient has mild shortness of breath. Patient denies fever, diarrhea. Patient has bowel movement yesterday morning, which is normal. Patient can pass gas. Patient was recently diagnosed as UTI and was treated with MicroBid by her urology. Patient still have mild dysuria. In the emergency room, EKG unremarkable, first troponin negative. Patient has mild leukocytosis. Chest x-ray shows bilateral lower lobe pneumonia, left> right. Abdomen CT shows no significant acute intra-abdominal changes. Pt was treated with IV Rocephin and Azithromycin, her respiratory symptoms have improved. On the third hospital day, she is afebrile, vitals were stable. O2 sats are satisfactory on room air. She is discharged home today. She was instructed to continue oral Augmentin for 10 more days, f/u with PCP within a week. Discharge discussed with: patient Time spent discussing smoking cessation with patient: more than 10 minutes - Time Spent with Patient Total time spent providing and/or coordinating discharge services: Time spent: Greater than 30 minutes - Discharge Medications Prescriptions: New Amoxicillin/Clavulanate [Augmentin] 875 mg PO BIDWM #14 tablet Continue Propranolol HCl [Innopran Xl] 80 mg PO DAILY Gabapentin [Neurontin] 100 mg PO HS Polyethylene Glycol 3350 [MiraLAX] 17 gm PO DAILY PRN PRN Reason: Constipation Triamcinolone Acetonide 15 gm TP BID Psyllium [Metamucil Fiber Singles Packet] 1 packet PO DAILY Lidocaine [Rectasmoothe] 30 gm TP TID Lactulose [Enulose] 10 gm PO DAILY PRN PRN Reason: Constipation Famotidine [Heartburn Prevention] 20 mg PO PRN PRN PRN Reason: Heartburn Dexlansoprazole [Dexilant] 60 mg PO DAILY Levothyroxine Sodium 112 mcg PO DAILY Metformin HCl [Fortamet] 1,000 mg PO QPM Discontinued Nitrofurantoin Monohyd/M-Cryst [Macrobid 100 mg Capsule] 100 mg PO Q12HR Home Medications: Dexlansoprazole [Dexilant] 60 mg PO DAILY 06/24/18 [History] Famotidine [Heartburn Prevention] 20 mg PO PRN PRN 06/24/18 [History] Gabapentin [Neurontin] 100 mg PO HS 06/24/18 [History] Lactulose [Enulose] 10 gm PO DAILY PRN 06/24/18 [History] Levothyroxine Sodium 112 mcg PO DAILY 06/24/18 [History] Lidocaine [Rectasmoothe] 30 gm TP TID 06/24/18 [History] Metformin HCl [Fortamet] 1,000 mg PO QPM 06/24/18 [History] Polyethylene Glycol 3350 [MiraLAX] 17 gm PO DAILY PRN 06/24/18 [History] Propranolol HCl [Innopran Xl] 80 mg PO DAILY 06/24/18 [History] Psyllium [Metamucil Fiber Singles Packet] 1 packet PO DAILY 06/24/18 [History] Triamcinolone Acetonide 15 gm TP BID 06/24/18 [History] Amoxicillin/Clavulanate [Augmentin] 875 mg PO BIDWM #14 tablet 06/27/18 [Rx] Allergies/Adverse Reactions: Allergy/AdvReac Type Severity Reaction Status Date / Time codeine AdvReac Nausea Verified 06/24/18 17:39 Penicillins AdvReac Rash Verified 06/24/18 17:39 Sulfa (Sulfonamide AdvReac Rash Verified 06/24/18 17:39 Antibiotics) Date of admission: 06/24/18 14:48 Primary care physician: Beverly Almanza MD Consults: 06/24/18 12:41 Consult to Liquor Runner [CONS] Routine Reason for SW Consult: patient has set up. [facility]. 06/24/18 14:10 Consult to Nurse Navigator [CONS] Routine Comment: PNEUMONIA Anticipated date of discharge: 06/27/18 - Constitutional Vitals: Temp Pulse Resp BP Pulse Ox 98.2 F 82 20 115/75 96 06/27/18 07:09 06/27/18 07:09 06/27/18 07:09 06/27/18 07:09 06/27/18 07:09 General appearance: Present: A&O X 3 Exam: Pt is AAO x 3, in NAD HEENT: NC/AT, PERRL Neck: Supple, no JVD, no LAD Lungs: CTA b/l, patient has chest wall tenderness on anterior chest wall- crackles in the base of the right lung Heart: S1S2, RRR Abd: Soft, mild tenderness in 4Q, BS present Ext: ROM wnl, no pedal edema Neuro: No focal deficit - Patient Status Disposition: Home, Self-Care Condition: Good Functional capacity at discharge: independent ambulation Overall status at discharge: patient is progressing back to baseline - Discharge Instructions Follow Up With: Beverly Almanza MD [Primary Care Provider] - 07/04/18 8:00 am - Diet and Activity Activity: increase activity as tolerated Diet: advance to your usual diet
[2018-06-27] MEDS: Psyllium 1 PACKET POWD.PACK PO SCH (09:28)
[2018-06-27] MEDS: Insulin LISPRO 300 UNITS/3 ML VIAL SQ SCH (09:29)
--- NOTE | 2018-06-27 10:20 | Physician Discharge Referral ---
Home Health/Hosp Referral Info Transfer to: Home Health Provider in Charge Post Discharge: PCP - Diagnosis (1) Community acquired pneumonia Priority: Primary Status: Acute (2) Hypoxia Priority: Primary Status: Acute (3) Abdominal pain Priority: Primary Status: Resolved (4) Diabetes Priority: Secondary Status: Chronic (5) Hypothyroidism Priority: Secondary Status: Chronic (6) Abdominal aortic aneurysm Priority: Secondary Status: Chronic (7) DVT prophylaxis Priority: Primary Status: Acute (8) Chest pain Priority: Primary Status: Resolved - Respiratory Orders Smoking Cessation: Smoking cessation has been advised. For more information, call the [place] Tobacco Quit Line at 3-897-NFVC-NOW. - Services Needed Following services are medically necessary services: Nursing, Home Health Aide, Physical Therapy, Occupational Therapy - Transfer Medications Prescriptions: Amoxicillin/Clavulanate [Augmentin] 875 mg PO BIDWM #14 tablet Home Medications: Dexlansoprazole [Dexilant] 60 mg PO DAILY 06/24/18 [History] Famotidine [Heartburn Prevention] 20 mg PO PRN PRN 06/24/18 [History] Gabapentin [Neurontin] 100 mg PO HS 06/24/18 [History] Lactulose [Enulose] 10 gm PO DAILY PRN 06/24/18 [History] Levothyroxine Sodium 112 mcg PO DAILY 06/24/18 [History] Lidocaine [Rectasmoothe] 30 gm TP TID 06/24/18 [History] Metformin HCl [Fortamet] 1,000 mg PO QPM 06/24/18 [History] Polyethylene Glycol 3350 [MiraLAX] 17 gm PO DAILY PRN 06/24/18 [History] Propranolol HCl [Innopran Xl] 80 mg PO DAILY 06/24/18 [History] Psyllium [Metamucil Fiber Singles Packet] 1 packet PO DAILY 06/24/18 [History] Triamcinolone Acetonide 15 gm TP BID 06/24/18 [History] Amoxicillin/Clavulanate [Augmentin] 875 mg PO BIDWM #14 tablet 06/27/18 [Rx] Allergies/Adverse Reactions: Allergy/AdvReac Type Severity Reaction Status Date / Time codeine AdvReac Nausea Verified 06/24/18 17:39 Penicillins AdvReac Rash Verified 06/24/18 17:39 Sulfa (Sulfonamide AdvReac Rash Verified 06/24/18 17:39 Antibiotics) Certification: Further, I certify that my clinical findings support that this patient is homebound (i.e. absences from home require considerable and taxing effort and are for medical reasons or yarsani services or infrequently or short duration when for other reasons) because: Homebound Reason: Patient requires assistance of a person or device to safely leave home Attestation: My signature below is to certify that this patient is under my care and that I, or nurse practitioner, or a physician's behavioral health assistant working with me, has a [id number] encounter with this patient.
== END 2018-06-27 13:11 | disposition home or self-care (01) | DRG 194 ==
LOC: 3BNU 03:19 → EMEROOARM 03:19 → 3BNU 08:15
PROVIDERS: ADMIT Internal Medicine; ATTEND Internal Medicine